=== PATIENT | male | born 1990 | race Caucasian/White ===

== ENCOUNTER 2017-10-26 13:20 | Emergency (ER) | payer OTHER ==
--- NOTE | 2017-10-26 13:31 | EDM.PDOC ---
ED HPI GENERAL MEDICAL PROBLEM - General Chief Complaint: Gastrointestinal Problem Stated Complaint: VOMITING BLOOD Time Seen by Provider: 10/26/17 13:40 Source of Information: Reports: Patient History Limitations: Reports: No Limitations - History of Present Illness INITIAL COMMENTS - FREE TEXT/NARRATIVE: 27-year-old male presents to the ED with complaint of hematemesis. He states he ate some dinner this afternoon and within the hour began to feel unwell. He vomited up his meal plus a handful of blood and clot. It was bright red for the most part. Of note the patient appreciated dark black tarry stools 2 yesterday. Patient drinks a a lot of alcohol. He is currently been drinking about a pint of whiskey or vodka on a daily basis. He is also a smoker 5-6 cigarettes a day and has been cutting back. At present he has mild queasy upset stomach. Feeling a little dizzy and lightheaded. Color is good. He states he said this occur once in the past again associated with heavy alcohol use but he got better on his own. No history of pancreatitis. No previous abdominal surgery. No history of peptic ulcer disease. He uses Excedrin Migraine once in a while for headaches. He does not use Motrin or Aleve. He has no signs or symptoms of peptic ulcer disease such as awakening at night with pain etc. Onset: Today Onset Date: 10/26/17 Onset Time: 12:40 Duration: Minutes: Location: Reports: Abdomen (Acute hematemesis sensation with losing his dinner today. Black tarry stools 2 yesterday.) Quality: Reports: Other (In no pain. Mildly queasy.) Severity: Moderate Improves with: Reports: None Worsens with: Reports: None Context: Denies: Activity, Exercise, Lifting, Sick Contact, Trauma, Other Associated Symptoms: Reports: Nausea/Vomiting. 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 Currently smoking about 5-8 cigarettes per day) - Living Situation & Occupation Occupation: Employed ED ROS GENERAL - Review of Systems Review Of Systems: See Below Constitutional: Reports: Fatigue. Denies: Fever, Chills, Malaise, Weakness, Decreased Appetite, Weight Loss (Mostly today.) HEENT: Reports: No Symptoms Respiratory: Reports: No Symptoms Cardiovascular: Reports: No Symptoms Endocrine: Reports: No Symptoms GI/Abdominal: Reports: Abdominal Pain, Hematemesis, Melena (See history of present illness) : Reports: No Symptoms Musculoskeletal: Reports: No Symptoms Skin: Reports: No Symptoms Neurological: Reports: No Symptoms Psychiatric: Reports: No Symptoms ED EXAM, GI/ABD - Physical Exam Exam: See Below Exam Limited By: No Limitations General Appearance: Alert, WD/WN, Mild Distress, Other (Color is good.) Eyes: Bilateral: Normal Appearance Throat/Mouth: Normal Inspection, Normal Lips, Normal Oropharynx Head: Atraumatic, Normocephalic Neck: Normal Inspection, Supple, Non-Tender, Full Range of Motion Respiratory/Chest: No Respiratory Distress, Lungs Clear, Normal Breath Sounds Cardiovascular: Normal Peripheral Pulses, Regular Rate, Rhythm, No Edema, No Murmur GI/Abdominal Exam: Normal Bowel Sounds, Soft, Non-Tender, No Organomegaly, No Abnormal Bruit, No Mass, Pelvis Stable Back Exam: Normal Inspection, Full Range of Motion. No: CVA Tenderness (L), CVA Tenderness (R) Extremities: Normal Inspection, Normal Range of Motion, Non-Tender, No Pedal Edema, Pedal Edema Neurological: Alert, Oriented, CN II-XII Intact, Normal Cognition Psychiatric: Normal Affect, Normal Mood, Anxious Skin Exam: Warm, Dry, Intact, Normal Color, No Rash (Mild) Course - Vital Signs Last Recorded V/S: Last Vital Signs Temp 36.8 C 10/26/17 13:32 Pulse 70 10/26/17 15:10 Resp 17 10/26/17 15:10 BP 138/85 10/26/17 15:10 Pulse Ox 99 10/26/17 15:10 Orthostatic Blood Pressure [ 155/99 Standing] Orthostatic Blood Pressure [ 161/91 Sitting] Orthostatic Blood Pressure [ 151/90 Supine] - Orders/Labs/Meds Labs: Laboratory Tests 10/26/17 10/26/17 10/26/17 Range/Units 14:05 14:05 14:05 WBC 9.83 H (4.23-9.07) K/mm3 RBC 4.96 (4.63-6.08) M/mm3 Hgb 15.1 (13.7-17.5) gm/L Hct 43.6 (40.1-51.0) % MCV 87.9 (79.0-92.2) fl MCH 30.4 (25.7-32.2) pg MCHC 34.6 (32.2-35.5) g/dl RDW Std Deviation 39.8 (35.1-43.9) fL Plt Count 261 (163-337) K/mm3 MPV 8.6 L (9.4-12.3) fl Neutrophils % (Manual) 71 H (40-60) % Band Neutrophils % 0 (0-10) % Lymphocytes % (Manual) 23 (20-40) % Atypical Lymphs % 0 % Monocytes % (Manual) 3 (2-10) % Eosinophils % (Manual) 3 (0.8-7.0) % Basophils % (Manual) 0 L (0.2-1.2) Platelet Estimate Adequate Plt Morphology Comment Normal RBC Morph Comment Normal Sodium 141 (136-145) mEq/L Potassium 3.8 (3.5-5.1) mEq/L Chloride 103 (98-107) mEq/L Carbon Dioxide 25 (21-32) mEq/L Anion Gap 16.8 H (5-15) BUN 14 (7-18) mg/dL Creatinine 1.2 (0.7-1.3) mg/dL Est Cr Clr Drug Dosing 108.46 mL/min Estimated GFR (MDRD) > 60 (>60) mL/min BUN/Creatinine Ratio 11.7 L (14-18) Glucose 92 (74-106) mg/dL Calcium 8.9 (8.5-10.1) mg/dL Magnesium 1.5 L (1.8-2.4) mg/dl Total Bilirubin 0.4 (0.2-1.0) mg/dL AST 32 (15-37) U/L ALT 72 H (16-63) U/L Alkaline Phosphatase 61 (46-116) U/L C-Reactive Protein < 0.2 (<1.0) mg/dL Total Protein 7.3 (6.4-8.2) g/dl Albumin 4.3 (3.4-5.0) g/dl Globulin 3.0 gm/dL Albumin/Globulin Ratio 1.4 (1-2) Lipase 84 (73-393) U/L Ethyl Alcohol (0.00) gm% H. pylori IgG Antibody Negative (NEGATIVE) Blood Type Gel Antibody Screen 10/26/17 10/26/17 Range/Units 14:05 14:05 WBC (4.23-9.07) K/mm3 RBC (4.63-6.08) M/mm3 Hgb (13.7-17.5) gm/L Hct (40.1-51.0) % MCV (79.0-92.2) fl MCH (25.7-32.2) pg MCHC (32.2-35.5) g/dl RDW Std Deviation (35.1-43.9) fL Plt Count (163-337) K/mm3 MPV (9.4-12.3) fl Neutrophils % (Manual) (40-60) % Band Neutrophils % (0-10) % Lymphocytes % (Manual) (20-40) % Atypical Lymphs % % Monocytes % (Manual) (2-10) % Eosinophils % (Manual) (0.8-7.0) % Basophils % (Manual) (0.2-1.2) Platelet Estimate Plt Morphology Comment RBC Morph Comment Sodium (136-145) mEq/L Potassium (3.5-5.1) mEq/L Chloride (98-107) mEq/L Carbon Dioxide (21-32) mEq/L Anion Gap (5-15) BUN (7-18) mg/dL Creatinine (0.7-1.3) mg/dL Est Cr Clr Drug Dosing mL/min Estimated GFR (MDRD) (>60) mL/min BUN/Creatinine Ratio (14-18) Glucose (74-106) mg/dL Calcium (8.5-10.1) mg/dL Magnesium (1.8-2.4) mg/dl Total Bilirubin (0.2-1.0) mg/dL AST (15-37) U/L ALT (16-63) U/L Alkaline Phosphatase (46-116) U/L C-Reactive Protein (<1.0) mg/dL Total Protein (6.4-8.2) g/dl Albumin (3.4-5.0) g/dl Globulin gm/dL Albumin/Globulin Ratio (1-2) Lipase (73-393) U/L Ethyl Alcohol 0.00 (0.00) gm% H. pylori IgG Antibody (NEGATIVE) Blood Type A POSITIVE Gel Antibody Screen Negative Meds: Medications Discontinued Medications Generic Name Dose Route Start Last Admin Trade Name Freq PRN Reason Stop Dose Admin Dextrose/Sodium Chloride 1,000 mls @ 999 mls/hr 10/26/17 14:00 10/26/17 14:15 Dextrose 5%-Normal Saline IV 999 mls/hr ASDIRECTED CONNER Administration Pantoprazole Sodium 80 mg/ 100 mls @ 10 mls/hr 10/26/17 14:00 Sodium Chloride IV ASDIRECTED CONNER Metoclopramide HCl 10 mg 10/26/17 13:54 10/26/17 14:17 Reglan IVPUSH 10/26/17 13:55 10 mg ONETIME ONE Administration Pantoprazole Sodium 80 mg 10/26/17 13:49 10/26/17 14:17 Protonix Iv IVPUSH 10/26/17 13:50 80 mg .BOLUS ONE Administration - Radiology Interpretation Free Text/Narrative:: 27-year-old male presents the ED with acute onset of hematemesis after eating dinner today. States he lost his dinner and brought up enough blood to fill a handful of bright red blood with clots. By history he said to melena stools are dark black tarry yesterday. He has no significant abdominal pain. He is mildly queasy. Patient drinks on average a pint of whiskey daily. He smokes 5-8 cigarettes daily is been cutting back. No history of pancreatitis. No previous history of peptic ulcer disease or abdominal surgery. Examination reveals reveals him to have good color. Vital signs are stable with a BP of 146/98 initially and a heart rate in the 80s. Plan orthostatic BPs ordered. IV will be D5 normal saline at open since he's not otherwise 8 today. He will receive Protonix 80 mg IV bolus then a drip at 8 mg per hour. Lab work done to be done to include serum magnesium and Helicobacter pylori and lipase. - Re-Assessments/Exams Free Text/Narrative Re-Assessment/Exam: 10/26/17 14:30 blood pressure remained fairly stable during orthostatic checks. Heart rate went from 86-105. Initial hemoglobin is 15.1. 10/26/17 14:43 Labs are now back. White count is 9.83. 71% neutrophils no bands reported. Hemoglobin is 15.1 with hematocrit of 43.6. White count is normal 261, 000. Sodium is 141 with potassium of 3.8. Toward 103 with a bicarbonate 25. Anion gap is mildly elevated at 16.8. BUNs 14 with a creatinine of 1.2. GFR is greater than 60. BUN creatinine ratio is 11.7. Glucose is 92. Calcium is 8.9. Magnesium is slightly low at 1.5. Bilirubin is 0.4. AST is 32 ALT mildly elevated at 72. Alk phosphatase is 61. C-reactive protein is less than 0.2. Lipase is 84. Current blood alcohol is 0.0 10/26/17 14:57 essentially he is a stable upper GI bleed with an obvious source of alcohol abuse and use of Excedrin as likely cause. The only blood test that she got back his H. pylori test and is unlikely to be positive. Since his hemoglobin is good. His vital signs remained good with blood pressure actually elevated due to being anxious. He will be discharged to home. He is decided of course to stop drinking alcohol at least on the interim to allow his ulcer or gastritis to heal. He lives in [place] and will return if he has any further hematemesis or bright red blood passage per rectum. Advised he is likely going to have some black stools at least for the next 2-3 bowel movements and then they should clear up to back to normal. He's to stay on a clear fluid to soft diet such as ice cream, yogurt and fluids over the weekend. He will be started on omeprazole 20 mg twice daily bedtime and morning for one week and then to take 1 tablet at bedtime daily for another month. Follow-up indicated if he has any further similar type symptoms. Departure - Departure Time of Disposition: 15:00 Disposition: Home, Self-Care 01 Condition: Fair Clinical Impression: Upper gastrointestinal bleeding - Discharge Information Prescriptions: Omeprazole 20 mg PO BEDTIME #42 cap.sr Instructions: Upper Gastrointestinal Bleeding Referrals: PCP,None [Primary Care Provider] - Forms: ED Department Discharge Additional Instructions: Evaluation in the emergency department today in regards to upper GI bleeding. Acute onset of hematemesis or bringing up blood with vomiting occurred this afternoon after dinner. Dark black tarry stool noted 2 yesterday indicating bleeding started yesterday or even the day before. Your lab tests revealed no significant abnormalities and your hemoglobin which is a measure of your red blood cell count is normal at 15.1. 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 Treatment is therefore to start omeprazole 20 mg twice daily morning and bedtime starting at bedtime tonight for one week and then 1 tablet at bedtime only for another month to heal any ulceration of the stomach. Of course it is very important to cut back or stop alcohol use. I would however recommend no alcohol use for the next 3 days and then may slowly resume alcohol use socially. No further Excedrin. Suggest Tylenol only for headaches or other aches and pains as this will not help precipitate an ulcer. He would need to return to medical care if you have further vomiting of bright red blood or passage of bright red blood per rectum. You're likely to have dark tarry stools for the next 2 or 3 bowel movements and then they should return to normal color. If you have any further vomiting of blood or persistent black stools you are to return to medical critical care. Over the weekend I would suggest plenty of fluids such as Gatorade Powerade. Light diet such as yogurt, ice cream, milk shakes, protein shakes i.e. soft diet. Once the stools have returned to normal color you can start to resume a normal diet.
[2017-10-26] MEDS ORDERED: Pantoprazole 40 MG Vial IVPUSH ONE (13:49)
[2017-10-26] MEDS ORDERED: Metoclopramide 10 MG/2 ML SDV IVPUSH ONE (13:54)
[2017-10-26] MEDS ORDERED: Dextrose 5%-0.9% NaCl 1,000 ML IV SCH (14:00)
[2017-10-26] MEDS ORDERED: Pantoprazole 80 MG in Sodium Chloride 0.9% 100 ML IV SCH (14:00)
== END 2017-10-26 15:12 | disposition home or self-care (01) ==
LOC: JD.ED 13:20
DX: K92.2 Gastrointestinal hemorrhage, unspecified (principal); F17.210 Nicotine dependence, cigarettes, uncomplicated
CPT/HCPCS: 36415; 80053; 83690; 83735; 85007; 85027; 86140; 86677; 86850; 86900; 86901; 96361; 96374; 96375; 99285; C9113; G0480; J2765; J7042; 99284